=== PATIENT | male | born 1985 | race Hispanic/Latino ===

== ENCOUNTER 2023-04-11 07:44 | Emergency (ER) | payer SELFPAY ==
[2023-04-11] MEDS ORDERED: Ketorolac Tromethamine 30 MG/ML VIAL ONE (08:34)
[2023-04-11 08:44] LABS: #Basophils 0.1 thou/uL (0.0-0.2); #Eosinphils 0.1 thou/uL (0.0-0.7); #Lymphocytes 1.7 thou/uL (1.20-3.40); #Monocytes 0.5 thou/uL (0.11-0.59); #Neutrophils 4.2 thou/uL (1.40-6.50); %Basophils 1.6 % (0.0-1.0); %Eosinophils 1.7 % (0.0-10.0); %Lymphocytes 25.4 % (21.0-51.0); %Monocytes 6.8 % (0.0-10.0); %Neutrophils 64.5 % (42.0-75.0); Hematocrit 45.4 % (42.0-52.0); Mean Corpuscular HGB CONC 33.1 g/dL (32.0-36.0); Mean Corpuscular Hemoglobin 29.5 pg (27.0-31.0); Mean Corpuscular Volume 89.3 fl (78.0-98.0); Mean Platelet Volume 6.5 fL (7.4-10.4); Platelet Count 248 10x3/uL (130-400); RBC Distribution Width 11.4 % (11.5-14.5); Red Blood Cell (RBC) Count 5.09 mill/uL (4.70-6.10); White Blood Cell (WBC) Count 6.6 10x3/uL (4.8-10.8)
[2023-04-11 08:59] LABS: ALT (SGPT) 42 U/L (8-55); AST (SGOT) 35 U/L (5-34); Albumin 4.1 g/dL (3.5-5.0); Alkaline Phosphatase 106 U/L (40-110); Anion Gap 15 mmol/L (10-20); BUN (Urea Nitrogen) 8 mg/dL (8.9-20.6); Calc. Creatinine Clearance 0 mL/min (70-130); Calcium 8.9 mg/dL (7.8-10.44); Carbon Dioxide 22 mmol/L (22-29); Chloride 104 mmol/L (98-107); Estimated GFR 122; Globulin 4.2 g/dL (2.4-3.5); Glucose 100 mg/dL (70-105); Lipase 12 U/L (8-78); Potassium 3.9 mmol/L (3.5-5.1); Protein, Total 8.3 g/dL (6.0-8.3); Sodium 137 mmol/L (136-145)
[2023-04-11 09:07] LABS: Troponin I Less than 0.010 ng/mL (< 0.028)
[2023-04-11 09:14] LABS: SARS-CoV-2 NAA Rapid Test Not Detected (NotDetected)
== END 2023-04-11 10:30 | disposition home or self-care (01) ==
LOC: BURERS 07:44
DX: B34.9 Viral infection, unspecified (principal); F17.210 Nicotine dependence, cigarettes, uncomplicated; Z20.822 Contact with and (suspected) exposure to COVID-19
CPT/HCPCS: 36415; 71045; 80053; 83690; 84484; 85025; 93005; 96361; 96374; J1885